=== PATIENT | female | born 1995 | race African-American/Black ===

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

== ENCOUNTER 2017-01-20 15:52 | Emergency (ER) | payer OTHER ==
[~2017-01-20] VITALS: Ht 167.6 cm; Wt 63.0 kg
[~2017-01-20 15:52] MED LIST: LEXAPRO10 M1 PO; LEXAPRO20 M1 PO; MELATONIN3 M4 PO; ZARAH TABLET1 EACH PO
[2017-01-20 16:18] VITALS: BP 138/94
[2017-01-20 16:37] LABS: ABSOLUTE BASOPHIL COUNT 0.1 /CUMM (0.0-0.2); ABSOLUTE EOSINOPHIL COUNT 0.1 /CUMM (0.0-0.7); ABSOLUTE GRANULOCYTE CT 5.1 /CUMM (1.4-6.5); ABSOLUTE LYMPH COUNT 1.4 /CUMM (1.2-3.4); ABSOLUTE MONOCYTE COUNT 0.5 /CUMM (0.10-0.60); BASOPHIL % 0.7 % (0.0-2.0); EOSINOPHIL % 1.1 % (0-5); GRANULOCYTE % 71.5 % (42.2-75.2); HEMATOCRIT 37.9 % (37-47); MEAN CORPUSCULAR HGB 26.3 PG (27.0-31.0); MEAN CORPUSCULAR HGB CONC 32.9 G/DL (33.0-37.0); MEAN CORPUSCULAR VOLUME 80.1 FL (81.0-99.0); PLATELET COUNT 232 /CUMM (130-400); RBC DISTRIBUTION WIDTH 13.5 % (11.5-14.5); RED BLOOD CELL CT 4.73 /CUMM (4.20-5.40); WHITE BLOOD CELL COUNT 7.1 /CUMM (4.8-10.8)
--- NOTE | 2017-01-20 17:23 | ED PSYCHIATRIC COMPLAINT ---
History of Present Illness General Chief Complaint: General Adult Stated Complaint: "I TOOK A BENY YESTERDAY AINT FEELING RIGHT" Source: patient, friend Exam Limitations: no limitations Vital Signs & Intake/Output Vital Signs & Intake/Output ED Intake and Output 01/21 0000 01/20 1200 Intake Total Output Total Balance Patient 139 lb Weight Allergies Coded Allergies: shellfish derived (THROAT CLOSURE 07/14/16) Reconcile Medications Escitalopram Oxalate (Lexapro) 20 MG TABLET 20 MG PO QAM depression/anxiety Take 1 tablet by mouth every morning. Ethinyl Estradiol/Drospirenone (Helena Tablet) 0.03 MG-3 MG TABLET 1 TAB PO DAILY control (Reported) Melatonin 3 MG TABLET 3 MG PO 2200 insomnia Take 1 tablet by mouth at bedtime. Ondansetron (Zofran Odt) 4 MG TAB.RAPDIS 1 TAB SL TID PRN nausea Triage Note: PT STATES THAT SHE WAS OUT WITH A FRIEND LAST PM AND TOOK A BENY, STARTED TO VOMIT 2 HOURS LATER AND STATES THAT SHE FEELS OUT OF IT. LAST VOMITTED 20 MINUTES AGO. Triage Nurses Notes Reviewed? yes Onset: Gradual Duration: hour(s): Timing: recent history Severity: moderate : No Patient currently breastfeeds: No HPI: 21-year-old female presents emergency department complaining of drug reaction to ecstasy she took last night. Patient states that last night around 9 PM she took small amount of ecstasy as well as smoked marijuana. She is complaining of frequent nausea and vomiting, anxiety, palpitations, jittery feeling. Her symptoms began approximately 2 hours after taking the drugs. She has not been able to tolerate oral intake. She has never used ecstasy prior to last night. She denies suicidal ideation, homicidal ideation, hallucination, chest pain, abdominal pain, dyspnea, cough, fall or injury, loss of consciousness. (CHARMAINE MCFADDEN,SHAISTA MARTINEZ) Past History Travel History Traveled to [place] past 21 day No Medical History Any Pertinent Medical History? 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 No (SHAISTA MONTANO PA-C) Review of Systems Review of Systems Constitutional: Reports: no symptoms. EENTM: Reports: no symptoms. Respiratory: Reports: no symptoms. Cardiovascular: Reports: see HPI. GI: Reports: see HPI. Genitourinary: Reports: no symptoms. Musculoskeletal: Reports: no symptoms. Skin: Reports: no symptoms. Neurological/Psychological: Reports: see HPI. Hematologic/Endocrine: Reports: no symptoms. Immunologic/Allergic: Reports: no symptoms. All Other Systems: Reviewed and Negative (SHAISTA MONTANO PA-C) Physical Exam Physical Exam General Appearance: well developed/nourished, no apparent distress, alert, awake , anxious Head: atraumatic, normal appearance Eyes: Bilateral: normal appearance, PERRL, EOMI. Ears, Nose, Throat: normal pharynx, hearing grossly normal Neck: normal inspection, supple, full range of motion, no midline tenderness Respiratory: normal breath sounds, no respiratory distress, lungs clear Cardiovascular: regular rate/rhythm Gastrointestinal: normal bowel sounds, soft, non-tender Extremities: normal range of motion Neurological/Psychiatric: no motor/sensory deficits, awake, alert, anxious, crystalizer tender II-XII nml as tested Appearance/Memory/Insight: appropriate appearance, appropriate insight Behavoir/Eye Contact/Speech: cooperative, increased rate of speech, good eye contact Thoughts/Hallucinations: normal thought pattern, no apparent hallucination Skin: intact, normal color, warm/dry SAD PERSONS Done? patient not suicidal (SHAISTA MONTANO PA-C) Progress Differential Diagnosis: drug intoxication, drug overdose, drug withdrawal, electrolyte abnormality, drug abuse Plan of Care: Orders Procedure Date/time Status URINE 01/21 1620 Complete URINE DRUG SCREEN FOR ER ONLY 01/21 1620 Complete COMPREHENSIVE METABOLIC PANEL 01/21 1620 Complete CBC WITHOUT DIFFERENTIAL 01/21 1620 Complete Laboratory Tests 01/20/17 1639: Urine Opiates Screen < 100.00, Methadone Screen < 40, Barbiturate Screen < 60, Ur Phencyclidine Scrn < 6.00, Amphetamines Screen < 100, U Benzodiazepines Scrn < 85, Urine Cocaine Screen < 50, Urine Cannabis Screen 11.00, Urine Test NEGATIVE 01/20/17 1628: Anion Gap 14, Estimated GFR > 60, BUN/Creatinine Ratio 10.0, Glucose 92, Calcium 9.9, Total Bilirubin 0.6, AST 20, ALT 32, Alkaline Phosphatase 48, Total Protein 7.8, Albumin 4.8, Globulin 3.0, Albumin/Globulin Ratio 1.6, CBC w Diff NO MAN DIFF REQ, RBC 4.73, MCV 80.1 L, MCH 26.3 L, RDW 13.5, MPV 8.0, Gran % 71.5, Lymphocytes % 19.3 L, Monocytes % 7.4, Eosinophils % 1.1, Basophils % 0.7, Absolute Granulocytes 5.1, Absolute Lymphocytes 1.4, Absolute Monocytes 0.5, Absolute Eosinophils 0.1, Absolute Basophils 0.1, PUBS MCHC 32.[address] Palomo regarding patient. The patient is in no acute distress, her vital signs are stable, she is mildly anxious on exam. We will treat symptomatically, Zofran for nausea, patient may receive 1 dose of Ativan here in the ED for her anxiety. The patient was educated on the seriousness of taking recreational drugs and how dangerous this can be. The patient will follow-up with her primary care doctor. She will increase her by mouth fluids. She will initiate clear liquid diet as tolerated for the next 24 hours. The patient was told that her symptoms may persist however they should gradually decrease. The patient is in agreement with the plan of care. (CHARMAINE MCFADDEN,SHAISTA MARTINEZ) Departure Departure Disposition: HOME OR SELF CARE Condition: Stable Clinical Impression Primary Impression: Ecstasy abuse Secondary Impressions: Drug side effects Referrals: PATIENT HAS NO PRIMARY CARE DR (PCP/Family) Additional Instructions: Take Zofran as prescribed as needed for nausea. You may continue to have symptoms tomorrow however they should be improving over time. Increase your fluid intake, drink lots of water. Follow-up with her primary care doctor for further symptoms. Return with any worsening symptoms or concerns. Please note that there might be incidental findings in your evaluation that are unrelated to the current emergency department visit. Please notify your primary care doctor about this emergency department visit in order to obtain and review all of the testing performed so that these incidental findings can be monitored as needed. If you're unable to follow up as outlined in the discharge instructions please return to the emergency department. Thank you for choosing the [facility] Emergency Department for your care. It was a pleasure to serve you today. Departure Forms: Customer Survey General Discharge Information Prescriptions: Current Visit Scripts Ondansetron (Zofran Odt) 1 TAB SL TID PRN nausea #10 TAB (CHARMAINE MCFADDEN,SHAISTA MARTINEZ) PA/BOBBIN FIXER Co-Sign Statement Statement: ED Attending supervision documentation- [] I saw and evaluated the patient. I have also reviewed all the pertinent lab results and diagnostic results. I agree with the findings and the plan of care as documented in the PA's/BOBBIN FIXER's documentation. [X] I have reviewed the ED Record and agree with the PA's/BOBBIN FIXER's documentation. [] Additions or exceptions (if any) to the PAs/BOBBIN FIXER's note and plan are summarized below: [] (PRASANTH PARISH,RACHAEL)
[2017-01-20] MEDS ORDERED: ZOFRAN ODT4 M1 SL (18:01)
== END 2017-01-20 18:15 ==
LOC: ERH 15:52
PROVIDERS: Emergency Medicine
DX: F15.10 Other stimulant abuse, uncomplicated (principal); T43.625A Adverse effect of amphetamines, initial encounter
CPT/HCPCS: 80307; 81025; J3101

== ENCOUNTER 2017-10-19 18:19 | Emergency (ER) | payer OTHER ==
[~2017-10-19] VITALS: Ht 170.2 cm; Wt 61.2 kg
[~2017-10-19 18:19] MED LIST changes: +ABILIFY10 M1 PO; +ZOFRAN ODT4 M1 SL
--- NOTE | 2017-10-19 18:57 | ED PSYCHIATRIC COMPLAINT ---
History of Present Illness General Chief Complaint: Psychiatric Related Complaint Stated Complaint: REQUESTING PSYCH EVAL, +SI Source: patient Exam Limitations: no limitations Allergies Coded Allergies: shellfish derived (THROAT CLOSURE 10/19/17) Reconcile Medications Aripiprazole (Abilify) 10 MG TABLET 10 MG PO DAILY MENTAL HEALTH (Reported) Escitalopram Oxalate (Lexapro) 20 MG TABLET 20 MG PO QAM depression/anxiety Take 1 tablet by mouth every morning. Ethinyl Estradiol/Drospirenone (Helena Tablet) 0.03 MG-3 MG TABLET 1 TAB PO DAILY control (Reported) Melatonin 3 MG TABLET 3 MG PO 2200 insomnia Take 1 tablet by mouth at bedtime. Ondansetron (Zofran Odt) 4 MG TAB.RAPDIS 1 TAB SL TID PRN nausea Triage Note: PT BROUGHT TO ED BY HER SUPERVISOR SHRIMP POND FOR +PASSIVE SI THOUGHTS FOR THE LAST COUPLE OF DAYS. DISCHARGED FROM [facility] YESTERDAY. HX OF DEPRESSION, ANXIETY AND BIPOLAR. PT DENIES CURRENT SI THOUGHTS AND IS MOTIVED TO GO TO OUTPATIENT APPOINTMENT TOMORROW. DENIES AH/VH. REPORTS "JUST FEELING DOWN." STARTED ON ABILIFY. Triage Nurses Notes Reviewed? yes Onset: Abrupt Duration: day(s): Timing: recent history : No Patient currently breastfeeds: No HPI: 22-year-old female that was just discharged from inpatient psychiatric department at [facility] comes into the emergency room for further evaluation of suicidal ideation. She reports that since she was discharged today she's been feeling increasingly depressed. She had some thoughts of not wanting to live earlier. She denies any alcohol or drug use. She reports that she has support from her anabaptism group. She currently denies any SI. (Silverio Larios) Vital Signs & Intake/Output Vital Signs & Intake/Output Vital Signs Date Time Temp Pulse Resp B/P B/P Pulse O2 O2 Flow FiO2 Mean Ox Delivery Rate 10/20 0941 98.6 86 18 118/62 98 Room Air 10/20 0619 97.3 101 18 135/72 98 Room Air 10/20 0010 97.0 81 20 116/70 ED Intake and Output 10/20 0000 10/19 1200 Intake Total Output Total Balance Patient 135 lb Weight Weight Reported by Patient Measurement Method (Hermann PARISH,Regis) Past History Travel History Traveled to [place] past 21 day No Medical History Any Pertinent Medical History? 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 No (Silverio Larios) Review of Systems Review of Systems Constitutional: Reports: no symptoms. EENTM: Reports: no symptoms. Respiratory: Reports: no symptoms. Cardiovascular: Reports: no symptoms. GI: Reports: no symptoms. Genitourinary: Reports: no symptoms. Musculoskeletal: Reports: no symptoms. Skin: Reports: no symptoms. Neurological/Psychological: Reports: see HPI. Hematologic/Endocrine: Reports: no symptoms. Immunologic/Allergic: Reports: no symptoms. All Other Systems: Reviewed and Negative (Silverio Larios) Physical Exam Physical Exam General Appearance: well developed/nourished, mild distress Head: atraumatic Eyes: Bilateral: normal appearance, EOMI. Ears, Nose, Throat: normal ENT inspection, hearing grossly normal Neck: normal inspection Respiratory: no respiratory distress Cardiovascular: regular rate/rhythm Extremities: normal range of motion Neurological/Psychiatric: awake, depressed affect Appearance/Memory/Insight: appropriate appearance Behavoir/Eye Contact/Speech: cooperative Skin: intact, normal color, warm/dry SAD PERSONS SAD PERSONS Response Value Depression/Hopelessness? yes 2 Previous Attempts/Psych Care yes 1 Single//? yes 1 Total 4 SAD PERSONS Done? yes (Silverio Larios) Progress Differential Diagnosis: dementia, drug intoxication, drug overdose, drug withdrawal Hand-Off Endorsed To: Desire PARISH,Adilson Amador Endorsed Time: 2233 Pending: consult (crisis) (Silverio Larios) Plan of Care: Orders Procedure Date/time Status Regular Diet 10/20 B Active ED CRISIS PSYCH CONSULT 10/20 2043 Active Continuous Observation Monitor 10/19 1838 Active URINE 10/19 1838 Complete URINE DRUG SCREEN FOR ER ONLY 10/19 1838 Complete URINALYSIS 10/19 1838 Complete COMPREHENSIVE METABOLIC PANEL 10/19 1838 Complete CBC WITHOUT DIFFERENTIAL 10/19 1838 Complete ED CRISIS PSYCH CONSULT 10/19 1838 Active Laboratory Tests 10/19/171857: Anion Gap 13, Estimated GFR > 60, BUN/Creatinine Ratio 13.8, Glucose 92, Calcium 9.9, Total Bilirubin 0.5, AST 14, ALT 25, Alkaline Phosphatase 43, Total Protein 7.7, Albumin 4.8, Globulin 2.9, Albumin/Globulin Ratio 1.7, CBC w Diff NO MAN DIFF REQ, RBC 4.93, MCV 81.6, MCH 26.5 L, MCHC 32.4 L, RDW 14.1, MPV 8.6, Gran % 57.0, Lymphocytes % 33.2, Monocytes % 7.5, Eosinophils % 1.6, Basophils % 0.7, Absolute Granulocytes 3.6, Absolute Lymphocytes 2.1, Absolute Monocytes 0.5, Absolute Eosinophils 0.1, Absolute Basophils 0 10/19/171847: Urine Opiates Screen < 100, Methadone Screen < 40, Barbiturate Screen < 60, Ur Phencyclidine Scrn < 6.00, Amphetamines Screen < 100, U Benzodiazepines Scrn < 85, Urine Cocaine Screen < 50, Urine Cannabis Screen 60.00 H, Urinalysis LIGHT H, Urine Color YEL, Urine Clarity CLEAR, Urine pH 6.5, Ur Specific [place] 1.025 , Urine Protein NEG, Urine Ketones TRACE H, Urine Nitrite NEG, Urine Bilirubin NEG, Urine Urobilinogen 0.2, Ur Leukocyte Esterase TRACE H, Ur Microscopic SEDIMENT EXAMINED, Ur Epithelial Cells MOD H, Urine Hemoglobin NEG, Urine Glucose NEG, Urine Test NEGATIVE Hand-Off Endorsed To: Regis Mccrary MD Endorsed Time: 0700 Pending: consult (Desire PARISH,Adilson Amador) Comments: Cleared by psychiatry for discharge. (Regis Mccrary MD) Departure Departure Condition: Stable Referrals: Nevaeh PARISH,Kecia Greco (PCP/Family) (Silverio Larios) Departure Clinical Impression Primary Impression: Depression PA/CHART READER Co-Sign Statement Statement: ED Attending supervision documentation- [] I saw and evaluated the patient. I have also reviewed all the pertinent lab results and diagnostic results. I agree with the findings and the plan of care as documented in the PA's/CHART READER's documentation. [x] I have reviewed the ED Record and agree with the PA's/CHART READER's documentation. [] Additions or exceptions (if any) to the PAs/CHART READER's note and plan are summarized below: [] (Adilson Phipps MD) Departure Time of Disposition: 1050 Disposition: HOME OR SELF CARE Additional Instructions: Follow up with the recommendations of the dairy cattle farm worker. Departure Forms: General Discharge Information (Regis Mccrary MD) (Regis Mccrary MD) Departure Forms: General Discharge Information (Regis Mccrary MD) (Adilson Phipps MD) Departure Time of Disposition: 1050 Disposition: HOME OR SELF CARE Additional Instructions: Follow up with the recommendations of the dairy cattle farm worker. Departure Forms: General Discharge Information (Regis Mccrary MD)
[2017-10-19 19:11] LABS: ABSOLUTE BASOPHIL COUNT 0 /CUMM (0.0-0.2); ABSOLUTE EOSINOPHIL COUNT 0.1 /CUMM (0.0-0.7); ABSOLUTE GRANULOCYTE CT 3.6 /CUMM (1.4-6.5); ABSOLUTE LYMPH COUNT 2.1 /CUMM (1.2-3.4); ABSOLUTE MONOCYTE COUNT 0.5 /CUMM (0.10-0.60); BASOPHIL % 0.7 % (0.0-2.0); EOSINOPHIL % 1.6 % (0-5); HEMATOCRIT 40.2 % (37-47); MEAN CORPUSCULAR HGB 26.5 PG (27.0-31.0); MEAN CORPUSCULAR HGB CONC 32.4 G/DL (33.0-37.0); MEAN CORPUSCULAR VOLUME 81.6 FL (81.0-99.0); MEAN PLATELET VOLUME 8.6 FL (7.4-10.4); PLATELET COUNT 237 /CUMM (130-400); RBC DISTRIBUTION WIDTH 14.1 % (11.5-14.5); RED BLOOD CELL CT 4.93 /CUMM (4.20-5.40); WHITE BLOOD CELL COUNT 6.2 /CUMM (4.8-10.8)
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
[2017-10-20 09:41] VITALS: BP 118/62
== END 2017-10-20 11:32 ==
LOC: ERH 18:19
PROVIDERS: Physician Assistant Medical
DX: F32.9 Major depressive disorder, single episode, unspecified (principal)
CPT/HCPCS: 80307; 81001; 81025; G0463